=== PATIENT | female | born 1985 | race Two or more races ===

== ENCOUNTER 2019-10-14 09:02 | Emergency (ER) | payer MEDICAID ==
[2019-10-14] MEDS ORDERED: KETOROLAC TROMETHAMINE INJ/PF 30 MG/1 ML SDV IV ONE (10:39)
[2019-10-14] MEDS ORDERED: NORMAL SALINE 1000 ML 1,000 ML IV ONE (10:39)
--- NOTE | 2019-10-14 10:44 | ER Document Report ---
ED Medical Screen (RME) - General Chief Complaint: Abdominal Pain Stated Complaint: ABDOMINAL PAIN Time Seen by Provider: 10/14/19 10:31 - HPI Notes: 10/14/19 10:40 34-year-old female G5, P3 who recently had a tubal ligation, right ovarian cyst removed, IUD removed on July 31, 2019 and trial some [place] presents to the emergency room for complaints of lower abdominal pain that radiates to her back since her surgery. Her pain is become worse over the last few days. Patient denies any vaginal bleeding or vaginal discharge. States her last menstrual cycle was September 30, 2019. Last bowel movement was 2 days ago when she is passing gas. She called the's place that did the surgery and advised to go to the local emergency room. Patient has not had an evaluation since having her surgery. Denies any fevers chills, chest pain, shortness of breath, nausea vomiting or diarrhea. Denies any melena. I have greeted and performed a rapid initial assessment of this patient. A comprehensive ED assessment and evaluation of the patient, analysis of test results and completion of the medical decision making process will be conducted by additional ED providers. PHYSICAL EXAMINATION: GENERAL: Well-appearing, well-nourished and in no acute distress. CV: s1, s2 regular LUNGS: No respiratory distress Musculoskeletal: Normal range of motion abd; right lower quadrant, left lower quadrant abdominal pain on palpation, left CVA tenderness appreciated. NEUROLOGICAL: Normal speech, normal gait. - Related Data Allergies/Adverse Reactions: No Known Allergies Allergy (Verified 10/14/19 10:31) Physical Exam - Vital signs Vitals: Temp Pulse Resp BP Pulse Ox 98.6 F 67 16 113/66 100 10/14/19 09:07 10/14/19 09:07 10/14/19 09:07 10/14/19 09:07 10/14/19 09:07 Course - Vital Signs Vital signs: Temp Pulse Resp BP Pulse Ox 98.6 F 67 16 113/66 100 10/14/19 09:07 10/14/19 09:07 10/14/19 09:07 10/14/19 09:07 10/14/19 09:07
--- NOTE | 2019-10-14 10:56 | ER Document Report ---
ED General - General Chief Complaint: Lower Abdominal Pain Stated Complaint: ABDOMINAL PAIN Time Seen by Provider: 10/14/19 10:31 - HPI Patient complains to provider of: Abdominal Pain Notes: 34-year-old female presents with suprapubic pain with radiation to her back 8/10 sharp in nature nothing makes it better or worse denies other associated symptoms Patient had tubal ligation and IUD removal performed on July 31, 2019 in [place]. Patient states since that time she is having pain and discomfort but has been getting progressively worse over the last few months. The last 4 days have a severe increase in the discomfort. Any trauma to her abdomen fever chills. Denies nausea vomiting. Patient had a normal bowel movement this morning. - Related Data Allergies/Adverse Reactions: No Known Allergies Allergy (Verified 10/14/19 10:31) Past Medical History - Social History Smoking Status: Current Every Day Smoker Chew tobacco use (# tins/day): No Frequency of alcohol use: None Drug Abuse: None Family History: None Patient has homicidal ideation: No Review of Systems - Review of Systems Notes: REVIEW OF SYSTEMS: CONSTITUTIONAL: -fevers, -chills EENT: -eye pain, -difficulty swallowing, -nasal congestion CARDIOVASCULAR: -chest pain, -syncope. RESPIRATORY: -cough, -SOB GASTROINTESTINAL: Positive for abdominal pain-nausea, -vomiting, -diarrhea GENITOURINARY: -dysuria, -hematuria MUSCULOSKELETAL: -back pain, -neck pain SKIN: -rash or skin lesions. HEMATOLOGIC: -easy bruising or bleeding. LYMPHATIC: -swollen, enlarged glands. NEUROLOGICAL: -altered mental status or loss of consciousness, -headache, - neurologic symptoms PSYCHIATRIC: -anxiety, -depression. ALL OTHER SYSTEMS REVIEWED AND NEGATIVE. Physical Exam - Vital signs Vitals: Temp Pulse Resp BP Pulse Ox 98.6 F 67 16 113/66 100 10/14/19 09:07 10/14/19 09:07 10/14/19 09:07 10/14/19 09:07 10/14/19 09:07 - Notes Notes: PHYSICAL EXAMINATION: GENERAL: Well-appearing, well-nourished and in no acute distress. HEAD: Atraumatic, normocephalic. EYES: Pupils equal round, sclera anicteric, conjunctiva are normal. ENT: Surgical mask in place. ABD: super pubic tenderness, no rebound or guarding NECK: Normal range of motion, LUNGS: No respiratory Distress, normal chest rise EXTREMITIES: Normal range of motion, No cyanosis. NEUROLOGICAL: Cranial nerves grossly intact. Normal speech, PSYCH: Normal mood, normal affect. SKIN: Warm, Dry, Course - Re-evaluation Re-evalutation: 10/14/19 11:08 Well-appearing 34-year-old female presents with vague complaints of increasing longstanding abdominal pain. Patient's vital signs are stable within normal limits. Patient is some mild tenderness on physical exam but is, peritonitis 10/14/19 15:22 Tensive lab work-up unremarkable, benign physical exam. Patient's transvaginal ultrasound finds questionable ovarian cyst. CAT scan abdomen pelvis with IV and oral contrast finds that if this is actually more likely a dermoid cyst versus a teratoma. Patient pain-free at this time. Patient will be discharged home with oral opioid therapy, referral to [facility]. Given strict return precautions that anything should worsen or change please return - Vital Signs Vital signs: Temp Pulse Resp BP Pulse Ox 98.6 F 67 16 113/66 100 10/14/19 09:07 10/14/19 09:07 10/14/19 09:07 10/14/19 09:07 10/14/19 09:07 - Laboratory Result Diagrams: 10/14/19 10:40 10/14/19 10:40 Laboratory results interpreted by me: 10/14/19 10:40 Lipase 369.6 H Discharge - Discharge Clinical Impression: Teratoma Condition: Stable Disposition: HOME, SELF-CARE Instructions: Ovarian Cyst ([facility]) Prescriptions: Oxycodone HCl [Oxycontin Ir 5 Mg Tablet] 5 - 10 mg PO Q4H PRN #15 tablet PRN Reason: For Pain Referrals: [facility] [Provider Group] - Follow up as needed
[2019-10-14 11:02] LABS: ABSOLUTE BASOPHILS # (AUTO) 0.1 10^3/uL (0.0-0.2); ABSOLUTE EOSINOPHILS # (AUTO) 0.1 10^3/uL (0.0-0.6); ABSOLUTE LYMPHOCYTES (AUTO) 1.8 10^3/uL (0.5-4.7); ABSOLUTE MONOCYTES (AUTO) 0.5 10^3/uL (0.1-1.4); ABSOLUTE NEUT (AUTO) 3.3 10^3/uL (1.7-8.2); BASOPHILS % (AUTO) 1.2 % (0-2); EOSINOPHILS % (AUTO) 1.8 % (0-6); HEMATOCRIT 42.4 % (36.0-47.0); HEMOGLOBIN 14.5 g/dL (12.0-15.5); LYMPHOCYTES % (AUTO) 31.5 % (13-45); MEAN CORPUSCULAR HEMOGLOBIN 32.3 pg (27.0-33.4); MEAN CORPUSCULAR HGB CONC 34.2 g/dL (32.0-36.0); MEAN CORPUSCULAR VOLUME 94 fl (80-97); MONOCYTES % (AUTO) 8.2 % (3-13); PLATELET COUNT 261 10^3/uL (150-450); RED CELL DISTRIBUTION WIDTH 12.9 % (11.5-14.0); SEGMENTED NEUTROPHILS % (AUTO) 57.3 % (42-78); TOTAL CELLS COUNTED % (AUTO) 100 %; WHITE BLOOD COUNT 5.8 10^3/uL (4.0-10.5)
[2019-10-14 11:07] LABS: APPEARANCE,URINE CLEAR; BILIRUBIN,URINE NEGATIVE (NEGATIVE); COLOR,URINE YELLOW; GLUCOSE, URINE NEGATIVE (NEGATIVE); KETONES,URINE NEGATIVE (NEGATIVE); LEUKOCYTE ESTERASE,URINE NEGATIVE (NEGATIVE); NITRITE,URINE NEGATIVE (NEGATIVE); PROTEIN,URINE NEGATIVE (NEGATIVE); URINE SPECIFIC GRAVITY 1.024; UROBILINOGEN,URINE NEGATIVE mg/dL (<2.0)
[2019-10-14 11:24] LABS: ALBUMIN 4.8 g/dL (3.5-5.0); ALKALINE PHOSPHATASE 65 U/L (38-126); ANION GAP 7 (5-19); ASPARTATE AMINO TRANSFERASE 23 U/L (14-36); BILIRUBIN,DIRECT 0.2 mg/dL (0.0-0.4); BILIRUBIN,TOTAL 0.4 mg/dL (0.2-1.3); BLOOD UREA NITROGEN 9 mg/dL (7-20); CALCIUM 9.9 mg/dL (8.4-10.2); CARBON DIOXIDE 30 mmol/L (22-30); CHLORIDE 104 mmol/L (98-107); GLUCOSE 88 mg/dL (75-110); POTASSIUM 4.3 mmol/L (3.6-5.0); TOTAL PROTEIN 7.8 g/dL (6.3-8.2)
--- NOTE | 2019-10-14 12:59 | RADIOLOGY REPORT (SQ) ---
EXAM DESCRIPTION: U/S NON-OB PELVIS TV W/O DOP IMAGES COMPLETED DATE/TIME: 10/14/2019 12:49 pm REASON FOR STUDY: pelvic pain since 07/31/19, had pelvic surgery COMPARISON: None. TECHNIQUE: Dynamic and static grayscale images acquired of the pelvis via transvaginal approach and recorded on PACS. Additional selected color Doppler and spectral images recorded. LIMITATIONS: None. FINDINGS: UTERUS: Contour normal. No mass. ENDOMETRIAL STRIPE: No focal or generalized thickening. No masses. CERVIX: No nabothian cysts. RIGHT OVARY AND DOPPLER: Normal size. 5.3 cm cyst. No worrisome masses. Normal arterial vascular fl ow without evidence for torsion. LEFT OVARY AND DOPPLER: Normal size. 1.7 cm cyst. No worrisome masses. Normal arterial vascular simin w without evidence for torsion. FREE FLUID: None noted. OTHER: No other significant finding. MEASUREMENTS: UTERUS: 4.6 x 5.1 x 9.0 cm. ENDOMETRIAL STRIPE: 1.0 cm. RIGHT OVARY: 4.2 x 4.9 x 6.0 cm. LEFT OVARY: 2.7 x 2.9 x 3.0 cm. IMPRESSION: 5.3 CM CYST IN THE RIGHT OVARY. 1.7 CM CYST IN THE LEFT OVARY. NO OTHER SIGNIFICANT FI NDINGS. TECHNICAL DOCUMENTATION: JOB ID: [id number] 2010 [employer]- All Rights Reserved Reading location - IP/workstation name: [email or web address]
--- NOTE | 2019-10-14 15:07 | RADIOLOGY REPORT (SQ) ---
EXAM DESCRIPTION: CT ABD/PELVIS WITH IV ORAL IMAGES COMPLETED DATE/TIME: 10/14/2019 1:34 pm REASON FOR STUDY: LLQ, RLQ abd pain,L flank pain s/p surg on 07/31/19 COMPARISON: None. TECHNIQUE: CT scan of the abdomen and pelvis performed using helical scanning technique with dynamic intravenous contrast injection. Oral contrast. Images reviewed with lung, soft tissue, and bone win dows. Reconstructed coronal and sagittal MPR images reviewed. Delayed images for evaluation of the ur inary system also acquired. All images stored on PACS. All CT scanners at this facility use dose modulation, iterative reconstruction, and/or weight based d osing when appropriate to reduce radiation dose to as low as reasonably achievable (ALARA). [facility]: Dose Right [facility]: CareDose [facility]: Dose Right [facility]: Teradose 4D [facility]: BIOCUREX CONTRAST TYPE AND DOSE: contrast/concentration: Isovue 350.00 mmol/ml; Total Contrast Delivered: 74. 0 ml; Total Saline Delivered: 42.0 ml RENAL FUNCTION: BUN 9 creatinine 0.68 RADIATION DOSE: CT Rad equipment meets quality standard of care and radiation dose reduction techniq ues were employed. CTDIvol: 4.9 - 4.9 mGy. DLP: 494 mGy-cm.. LIMITATIONS: None. FINDINGS: LOWER CHEST: No significant findings. No nodules or infiltrates. LIVER: Normal size. No masses. No dilated ducts. SPLEEN: Normal size. No focal lesions. PANCREAS: No masses. No significant calcifications. No adjacent inflammation or peripancreatic fluid collections. Pancreatic duct not dilated. GALLBLADDER: No identified stones by CT criteria. No inflammatory changes to suggest cholecystitis. ADRENAL GLANDS: No significant masses or asymmetry. RIGHT KIDNEY AND URETER: No solid masses. No significant calcifications. No hydronephrosis or hyd roureter. LEFT KIDNEY AND URETER: No solid masses. No significant calcifications. No hydronephrosis or hydr oureter. AORTA AND VESSELS: No aneurysm. No dissection. Renal arteries, SMA, celiac without stenosis. RETROPERITONEUM: No retroperitoneal adenopathy, hemorrhage or masses. BOWEL AND PERITONEAL CAVITY: No masses or inflammatory changes. No free fluid or peritoneal masses. APPENDIX: Not identified. PELVIS: There is a 5.3 cm low-density area in the right adnexa. This contains a calcification. This measures about 22 Hounsfield units. There is a fat-density rim around this. ABDOMINAL WALL: No masses. No hernias. BONES: No significant or acute findings. OTHER: No other significant finding. 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 No other significant findings. TECHNICAL DOCUMENTATION: JOB ID: [id number] Quality ID # [id number]: Final reports with documentation of one or more dose reduction techniques (e.g., Au tomated exposure control, adjustment of the mA and/or kV according to patient size, use of iterative reconstruction technique) 2010 [employer]- All Rights Reserved Reading location - IP/workstation name: [email or web address]
[2019-10-14 15:53] VITALS: BP 109/79
== END 2019-10-14 15:42 | disposition home or self-care (01) ==
LOC: ER 09:02
DX: R10.30 Lower abdominal pain, unspecified (principal); D27.0 Benign neoplasm of right ovary; F17.200 Nicotine dependence, unspecified, uncomplicated; Z98.51 Tubal ligation status
CPT/HCPCS: 99285; 96361; 96374; 36415; 83690; 85025; 81025; 80053; 81001; 76830; 74177; J1885; J7030

== ENCOUNTER 2019-12-01 09:34 | Day surgery (SDC) | payer MEDICAID ==
[2019-11-25 12:48] LABS: HEMATOCRIT 40.9 % (36.0-47.0); HEMOGLOBIN 13.9 g/dL (12.0-15.5); MEAN CORPUSCULAR HEMOGLOBIN 31.7 pg (27.0-33.4); MEAN CORPUSCULAR HGB CONC 33.9 g/dL (32.0-36.0); MEAN CORPUSCULAR VOLUME 94 fl (80-97); PLATELET COUNT 236 10^3/uL (150-450); RED BLOOD COUNT 4.37 10^6/uL (3.72-5.28); RED CELL DISTRIBUTION WIDTH 13.1 % (11.5-14.0); WHITE BLOOD COUNT 6.7 10^3/uL (4.0-10.5)
[2019-11-25 12:51] LABS: APPEARANCE,URINE SLIGHTLY-CLOUDY; BILIRUBIN,URINE NEGATIVE (NEGATIVE); COLOR,URINE YELLOW; GLUCOSE, URINE NEGATIVE (NEGATIVE); KETONES,URINE NEGATIVE (NEGATIVE); LEUKOCYTE ESTERASE,URINE NEGATIVE (NEGATIVE); NITRITE,URINE NEGATIVE (NEGATIVE); PROTEIN,URINE NEGATIVE (NEGATIVE); URINE SPECIFIC GRAVITY 1.021; UROBILINOGEN,URINE NEGATIVE mg/dL (<2.0)
[~2019-12-01 09:34] MED LIST: FENTANYL CITRATE INJ/PF 250 MCG/5 ML AMPULE ONE; LACTATED RINGERS 1000 ML IV PRN; LIDOCAINE 2% INJ-PF (20 MG/ML) 10 ML AMPUL ONE; MIDAZOLAM 2 MG/2 ML INJ ONE; PROPOFOL INJ 200 MG/20 ML VIAL IV ONE
[2019-12-01] MEDS ORDERED: MEPERIDINE HCL/PF INJ 25 MG/1 ML DISP.SYRIN IV PRN (12:16)
[2019-12-01] MEDS ORDERED: FENTANYL CITRATE INJ/PF 100 MCG/2 ML AMPUL IV PRN ×3 (12:16)
[2019-12-01] MEDS ORDERED: PROMETHAZINE HCL INJ 25 MG/1 ML VIAL IV PRN ×2 (12:16)
[2019-12-01] MEDS ORDERED: DIPHENHYDRAMINE HCL 50 MG/ML VIAL IV PRN (12:16)
[2019-12-01] MEDS: FENTANYL CITRATE INJ/PF 100 MCG/2 ML AMPUL ONE ×2 (13:23→13:28)
--- NOTE | 2019-12-01 13:28 | Operative Report ---
Operative Report DATE OF SURGERY: 12/01/19 PREOPERATIVE DIAGNOSIS: Pelvic pain. Right adnexal mass POSTOPERATIVE DIAGNOSIS: As above plus. Dermoid of right ovary. Left corpus lueteal cyst OPERATION: Diagnostic laparoscopy with right oophorectomy SURGEON: TYRONE SHELTON ANESTHESIA: GA TISSUE REMOVED OR ALTERED: Right ovary COMPLICATIONS: None ESTIMATED BLOOD LOSS: 10 cc INTRAOPERATIVE FINDINGS: Normal appearing uterus, surgically abscent fallopian tubes, Right ovary enlarged with no discrete cyst, left ovary with small appearing corpus luteal cyst.Liver edge seen and normal appearing PROCEDURE: IV fluids: per anesthesia record Urinary output: 50 cc urine emptied from the bladder at the beginning of the procedure Findings: Normal-appearing uterus, surgically abscent bilateral fallopian tubes left ovary with small corpus luteal cyst and right ovary enlarged with no discrete cystic structure. Liver seen and appears normal Position: To recovery room in stable condition Description of procedure: The patient was taken to the operating room and general anesthesia was administe red and found to be adequate. She was then placed on the OR table in the dorsal lithotomy position. The Patient was prepped and draped in usual sterile fashion. Timeout was taken. A bivalve spectulm was to visualize the cervix. The anterior lip of the cervix was then grasped with a single tooth tenaculum and an acorn uterine manipulator was placed. At this time attention was turned of the patient's abdomen and sterile gloves were donned a 1 cm infra umbilical incision was made horizontally and carried down to the level of the rectus fascia. The rectus fascia was then grasped with 2 Elsa clamps elevated and incised with Santiago scissors. A digital sweep was done noting entry into the peritoneum. The fascia was tagged bilaterally with 0-vicryl suture. A #10 Snider trocar was positioned and CO2 gas was used to insufflate the abdomen to a quantity sufficient for the laparoscopy. The laparoscope was inserted and a survey was done of the abdomen pictures were obtained. Findings noted as above. The right ovary was elevated the the uterovarian ligament was taken down in a step delgado fashion with the ligasure; clamping, coagulating and cutting. Then the IP ligament was isolated on the right. The ureter was noted to be out of harms way. The RIght IP ligament was clamped, cauterized and cut in a step delgado fashion with the ligasure. The right ovary was then free. A #10 endocatch bag was inserted and the specimen was removed without spillage of any contents in the abdomen. This will be sent to lab as dermoid right ovary. Good hemostasis was noted. Pictures were obtained. During inspection of left ovary, the tissue at site of left corpus luteal cyst rupture was slightly friable and it was touched with hot scissors with good hemostasis resulting. Small amount of fluid noted in pelvis which was slightly blood tinged. All tissues hemostatic. At this point the procedure was terminated. All instrument removed from the patient's abdomen and CO2 gas was allowed to escape. The infraumbilical port was removed. The fascia was closed with 0 Vicryl suture. The skin was closed with 3-0 Monocryl in a series of interrupted stitiches. The skin incision was then clean dried and Dermabond was applied over the skin incision. All instrument sponge and needle counts were correct x3 for the procedure the patient tolerated the procedure well. She will proceed to recovery room in [facility]
--- NOTE | 2019-12-01 13:30 | Discharge Summary ---
Discharge Summary (SDC) - Discharge Final Diagnosis: dermoid right ovary, left corpus luteal cyst Date of Surgery: 12/01/19 Condition: Stable Treatment or Instructions: No heavy lifting for 6 weeks . May resume regular diet later today as tolerated. Hydrate well. Pelvic rest for 2 weeks Prescriptions: Docusate Sodium [Colace 100 mg Capsule] 100 mg PO DAILY 30 Days #30 capsule Ibuprofen [Ibu] 800 mg PO Q8 10 Days #30 tablet Oxycodone HCl/Acetaminophen [Percocet 5-325 mg Tablet] 1 tab PO ASDIR PRN 4 Days #20 tab PRN Reason: Respiratory Treatments at Home: Deep Breathing/Coughing Discharge Activity: Activity As Tolerated, No Driving - while taking narcotic medications, No Lifting Over 10 Pounds, No Lifting/Push/Pulling, Pelvic Rest - x 2 weeks, Slowly Increase Activity, No tub bath, Walk Frequently Home Care Assistance: None Needed Report the Following to Your Physician Immediately: Shortness of Breath, Vomiting, Fever over 101 Degrees, Unusual Bleeding, Increased Vaginal Bleed, Visual Disturbance, Wheezing, Seizure, IV Site Infection Signs
[2019-12-01] MEDS ORDERED: OXYCODONE-ACETAMINOPHEN 5-325 MG TABLET PO PRN (13:51)
[2019-12-01] MEDS ORDERED: OXYCODONE-ACETAMINOPHEN 5-325 MG TABLET ONE (14:07)
[2019-12-01 15:16] VITALS: BP 100/61
[2019-12-01] MEDS ORDERED: ROCURONIUM BROMIDE INJ 50 MG/5 ML VIAL IV ONE (15:33)
[2019-12-01] MEDS ORDERED: GLYCOPYRROLATE 1 MG/5 ML VIAL ONE (15:33)
[2019-12-01] MEDS ORDERED: DEXAMETHASONE SOD PHOSPHATE INJ 4 MG/1 ML VIAL ONE (15:33)
[2019-12-01] MEDS ORDERED: METOCLOPRAMIDE HCL INJ/PF 10 MG/2 ML SDV ONE (15:33)
[2019-12-01] MEDS ORDERED: ONDANSETRON HCL INJ/PF 4 MG/2 ML SDV ONE (15:33)
[2019-12-01] MEDS ORDERED: KETOROLAC TROMETHAMINE 60 MG/2 ML SDV ONE (15:33)
[2019-12-01] MEDS ORDERED: NEOSTIGMINE METHYLSULFATE 10 MG/10 ML VIAL ONE (15:33)
== END 2019-12-01 15:10 | disposition home or self-care (01) ==
LOC: OROUT 09:34
PROVIDERS: ATTEND Obstetrics & Gynecology
DX: D27.0 Benign neoplasm of right ovary (principal); N83.12 Corpus luteum cyst of left ovary; R10.2 Pelvic and perineal pain; N83.8 Other noninflammatory disorders of ovary, fallopian tube and broad ligament; F17.200 Nicotine dependence, unspecified, uncomplicated; K59.09 Other constipation; Z03.818 Encounter for observation for suspected exposure to other biological agents ruled out; Z86.19 Personal history of other infectious and parasitic diseases; Z90.49 Acquired absence of other specified parts of digestive tract; Z90.79 Acquired absence of other genital organ(s)
CPT/HCPCS: 58661; 36415; 85027; 87635; 81005; 81025; 88305 ×2; 00840; J2250; J3490 ×3; J1100; J1885; J3010 ×2; J2765; J2710; J2405; J2704; C9803; 840

== ENCOUNTER 2020-02-02 11:37 | Emergency (ER) | payer MEDICAID ==
[2020-02-02 11:58] VITALS: BP 113/72
--- NOTE | 2020-02-02 12:15 | ER Document Report ---
ED Medical Screen (RME) - General Chief Complaint: Back Pain Stated Complaint: BACK PAIN, ABDOMINAL PAIN Time Seen by Provider: 02/02/20 12:12 Mode of Arrival: Ambulatory Information source: Patient Notes: 34-year-old female presented to ED for complaint of right flank abdomen and leg pain. She states she has had some nausea and is felt like she was tested several times. She states she did recently have from surgery where they removed her right ovary after they did a CAT scan and saw that she had a tumor attached to her right ovary. She states this was in November. She states she does smoke 6 or 7 cigarettes a day does not drink or do any illicit drugs. She states she does still have her gallbladder. We will get lipase as well. I have greeted and performed a rapid initial assessment of this patient. A comprehensive ED assessment and evaluation of the patient, analysis of test results and completion of medical decision making process will be conducted by an additional ED providers. - Related Data Allergies/Adverse Reactions: No Known Allergies Allergy (Verified 11/25/19 11:28) Past Medical History - Past Medical History Cardiac Medical History: Denies: Hx Coronary Artery Disease, Hx Heart Attack, Hx Hypertension Pulmonary Medical History: Denies: Hx Asthma, Hx Bronchitis, Hx COPD, Hx Pneumonia Neurological Medical History: Reports: Hx Seizures - NO MEDS, NONE OVER 2YRS. Denies: Hx Cerebrovascular Accident Musculoskeltal Medical History: Denies Hx Arthritis Past Surgical History: Reports: Hx Abdominal Surgery - Immunizations Hx Diphtheria, Pertussis, Tetanus Vaccination: Yes Physical Exam - Vital signs Vitals: Temp Pulse Resp BP Pulse Ox 98.2 F 78 18 113/72 99 02/01/20 23:57 02/01/20 23:57 02/01/20 23:57 02/01/20 23:57 02/01/20 23:57 Course - Vital Signs Vital signs: Temp Pulse Resp BP Pulse Ox 98.2 F 78 18 113/72 99 02/01/20 23:57 02/01/20 23:57 02/01/20 23:57 02/01/20 23:57 02/01/20 23:57
[2020-02-02 12:39] LABS: APPEARANCE,URINE CLEAR; BILIRUBIN,URINE NEGATIVE (NEGATIVE); COLOR,URINE YELLOW; GLUCOSE, URINE NEGATIVE (NEGATIVE); KETONES,URINE NEGATIVE (NEGATIVE); LEUKOCYTE ESTERASE,URINE TRACE (NEGATIVE); NITRITE,URINE NEGATIVE (NEGATIVE); PROTEIN,URINE NEGATIVE (NEGATIVE); URINE SPECIFIC GRAVITY 1.017; UROBILINOGEN,URINE NEGATIVE mg/dL (<2.0)
[2020-02-02 12:48] LABS: ABSOLUTE BASOPHILS # (AUTO) 0.1 10^3/uL (0.0-0.2); ABSOLUTE EOSINOPHILS # (AUTO) 0.1 10^3/uL (0.0-0.6); ABSOLUTE LYMPHOCYTES (AUTO) 1.6 10^3/uL (0.5-4.7); ABSOLUTE MONOCYTES (AUTO) 0.4 10^3/uL (0.1-1.4); ABSOLUTE NEUT (AUTO) 2.4 10^3/uL (1.7-8.2); BASOPHILS % (AUTO) 2.2 % (0-2); EOSINOPHILS % (AUTO) 1.6 % (0-6); HEMATOCRIT 39.4 % (36.0-47.0); HEMOGLOBIN 13.4 g/dL (12.0-15.5); MEAN CORPUSCULAR HEMOGLOBIN 31.5 pg (27.0-33.4); MEAN CORPUSCULAR HGB CONC 33.9 g/dL (32.0-36.0); MEAN CORPUSCULAR VOLUME 93 fl (80-97); MONOCYTES % (AUTO) 8.2 % (3-13); PLATELET COUNT 246 10^3/uL (150-450); RED BLOOD COUNT 4.23 10^6/uL (3.72-5.28); RED CELL DISTRIBUTION WIDTH 13.8 % (11.5-14.0); TOTAL CELLS COUNTED % (AUTO) 100 %; WHITE BLOOD COUNT 4.6 10^3/uL (4.0-10.5)
[2020-02-02 13:03] LABS: ALBUMIN 4.4 g/dL (3.5-5.0); ALKALINE PHOSPHATASE 64 U/L (38-126); ANION GAP 9 (5-19); ASPARTATE AMINO TRANSFERASE 27 U/L (14-36); BILIRUBIN,DIRECT 0.1 mg/dL (0.0-0.4); BILIRUBIN,TOTAL 0.5 mg/dL (0.2-1.3); BLOOD UREA NITROGEN 13 mg/dL (7-20); CALCIUM 9.7 mg/dL (8.4-10.2); CARBON DIOXIDE 24 mmol/L (22-30); CHLORIDE 104 mmol/L (98-107); GLUCOSE 88 mg/dL (75-110); POTASSIUM 4.5 mmol/L (3.6-5.0); TOTAL PROTEIN 7.5 g/dL (6.3-8.2)
--- NOTE | 2020-02-02 13:17 | RADIOLOGY REPORT (SQ) ---
EXAM DESCRIPTION: U/S ABDOMEN LIMITED W/O DOP IMAGES COMPLETED DATE/TIME: 02/02/2020 1:05 pm REASON FOR STUDY: Right upper abdomen and flank pain COMPARISON: CT of the abdomen and pelvis from 10/14/2019. TECHNIQUE: Dynamic and static grayscale images acquired of the abdomen and recorded on PACS. Additio nal selected color Doppler and spectral images recorded. LIMITATIONS: None. FINDINGS: PANCREAS: The visualized portions of the pancreas appear normal. LIVER: Normal contour and echotexture of the liver. LIVER VASCULATURE: Normal hepatopetal directional flow in the main portal vein. GALLBLADDER: The gallbladder wall measures 2 mm in thickness. There is no cholelithiasis, sludge or pericholecystic fluid. ULTRASOUND-DETECTED KENDALL'S SIGN: Negative. INTRAHEPATIC DUCTS AND COMMON DUCT: The common bile duct measures 2 mm in diameter. There is no dila tation of the intrahepatic ducts. INFERIOR VENA CAVA: Not assessed. AORTA: No aneurysm. RIGHT KIDNEY: The right kidney measures 9.8 cm in length. There is no hydronephrosis. PERITONEAL AND RIGHT PLEURAL SPACE: No ascites or effusions. OTHER: No other findings. IMPRESSION: NORMAL RIGHT UPPER QUADRANT ULTRASOUND. TECHNICAL DOCUMENTATION: JOB ID: [id number] 2010 [employer]- All Rights Reserved Reading location - IP/workstation name: [email or web address]
== END 2020-02-02 17:02 | disposition left against medical advice (07) ==
LOC: ER 11:37
DX: M54.9 Dorsalgia, unspecified (principal); R10.9 Unspecified abdominal pain; M79.606 Pain in leg, unspecified; R11.0 Nausea; F17.210 Nicotine dependence, cigarettes, uncomplicated
CPT/HCPCS: 36415; 76705; 80053; 81001; 83690; 84703; 85025; 87086; 99281